=== PATIENT | female | born 1945 | race Caucasian/White ===

== ENCOUNTER 2019-01-12 18:56 | Emergency (ER) | payer BC, MEDICARE ==
[~2019-01-12] VITALS: Wt 79.5 kg
[~2019-01-12 18:56] MED LIST: DOXY100T20 PO; DULO60CA6 PO; FLUT16SP24 NASAL; IBUP-1542 PO; LORA-441 PO; PRAV80TA27 PO; PRED20TA PO; ZOLP5TAB PO
[2019-01-12] MEDS ORDERED: IBUPROFEN 600 MG TAB PO ONE (21:00)
--- NOTE | 2019-01-12 21:56 | ERD ---
ER Documentation Chief Complaint Chief Complaint R ANKLE PAIN S/P TRIP AND FALL TODAY HPI This is a pleasant but unfortunate 73-year-old female who was coming down the stairs and she missed a step and she twisted her right ankle and now has right ankle pain and swelling and she is unable to bear weight. She denies any other areas of injury. She denies hitting her head. She does not take any blood thinning medications. She has not taken any medication for her pain. She denies any preceding chest pain, palpitations, headache, dizziness, or loss of balance. ROS All systems reviewed and are negative except as per history of present illness. Medications Home Meds Active Scripts Doxycycline Hyclate* (Doxycycline Hyclate*) 100 Mg Tablet., 100 MG PO BID for 7 Days, TAB Prov:FORREST KING MD 12/24/14 Prednisone* (Prednisone*) 20 Mg Tab, 60 MG PO DAILY for 3 Days, TAB Prov:FORREST KING MD 12/24/14 Reported Medications Fluticasone Propionate* (Flonase* Nasal) 50 Mcg/[place] - 16 Gm [place].susp, 1 SPRAY NASAL DAILY, SPRAY TO EACH NOSTRIL 12/22/14 Ibuprofen* (Ibuprofen*) 600 Mg Tablet, 600 MG PO DAILY PRN for PAIN, TAB 12/22/14 Lorazepam* (Ativan*) 0.5 Mg Tablet, 0.5 MG PO DAILY PRN for ANXIETY, TAB 12/22/14 Zolpidem Tartrate* (Ambien*) 5 Mg Tablet, 5 MG PO HS PRN for INSOMNIA, TAB 12/22/14 Pravastatin Sodium* (Pravastatin Sodium*) 80 Mg Tablet, 80 MG PO HS, TAB 12/22/14 Duloxetine Hcl* (Cymbalta*) 60 Mg Capsule.dr, 60 MG PO DAILY, CAP 12/22/14 Allergies Allergies: Coded Allergies: No Known Allergy (Unverified , 12/22/14) PMhx/Soc History of Surgery: Yes (RIGHT MASECTOMY 1988, BREAST CA, PERITONEAL CANCER) Anesthesia Reaction: No Hx Neurological Disorder: No Hx Respiratory Disorders: No Hx Cardiac Disorders: No Hx Psychiatric Problems: No Hx Miscellaneous Medical Probl: No Hx Alcohol Use: Yes (WINE 2 GLASSES NIGHTLY, [place] DAILY) Hx Substance Use: No Hx Tobacco Use: Yes Smoking Status: Former smoker FmHx Family History: No diabetes Physical Exam Vitals Vital Signs Date Temp Pulse Resp B/P (MAP) Pulse Ox O2 O2 Flow FiO2 Time Delivery Rate 01/12/19 98.1 74 18 159/76 96 19:16 (103) Physical Exam Const: No acute distress Head: Atraumatic Eyes: Normal Conjunctiva ENT: Normal External Ears, Nose and Mouth. Neck: Full range of motion. No meningismus. Resp: Clear to auscultation bilaterally Cardio: Regular rate and rhythm, no murmurs Lower Extremity -right Skin: No laceration Compartments: Soft Motor: Full active range of motion hip/knee/ankle/foot Sensation: Intact to light touch FDWS/MF/LF/P surfaces. Bones: Swelling and tenderness to palpation over medial and lateral malleolus Joints: Bilateral malleoli are are swollen Pulses/Perfusion: 2+ DP, Capillary refill < 2 seconds Results 24 hrs Current Medications Medications Dose Sig/Tl Start Time Status Last (Trade) Ordered Route PRN Stop Time Admin Dose Reason Admin Ibuprofen 600 mg ONCE ONCE 01/12/19 DC 01/12/19 (Motrin) PO 21:00 01/12/19 21:00 21:01 Procedures/MDM 73-year-old female twisted her ankle. She is neurovascular intact. X-ray does reveal fracture. She was placed in a short leg posterior splint and given outpatient orthopedic follow-up. Prescription for pain medication given. Patient counseled regarding my diagnostic impression and care plan. Prior to discharge all questions answered. Pt agrees with treatment plan and understands strict return precautions. Pt is instructed to follow up with primary care provider within 24-48 hours. Precautionary instructions provided including instructions to return to the ER if not improving or for any worsening or changing symptoms or concerns. Departure Diagnosis: Primary Impression: Ankle fracture Condition: Stable ROSALIE GRISSOM PA-C January 12, 2019 21:56
[2019-01-12] MEDS ORDERED: HYDR-4011 PO (21:58)
[2019-01-12] MEDS ORDERED: IBUP-1542 PO (21:58)
[2019-01-12 22:36] VITALS: BP 147/70; PULSE 85; RESP 18
== END 2019-01-12 22:36 | disposition home or self-care (01) ==
LOC: FTE 18:56
DX: S82.891A Other fracture of right lower leg, initial encounter for closed fracture (principal); W01.0XXA Fall on same level from slipping, tripping and stumbling without subsequent striking against object, initial encounter; Y92.9 Unspecified place or not applicable; Z85.3 Personal history of malignant neoplasm of breast; Z85.89 Personal history of malignant neoplasm of other organs and systems; Z87.891 Personal history of nicotine dependence